=== PATIENT | male | born 1940 ===

== ENCOUNTER 2023-12-28 09:35 | Inpatient (IN) | payer MEDICARE, SELFPAY ==
[2023-12-16 08:37] VITALS: BMI 26.0
[2023-12-16 08:59] LABS: Hematocrit 28.4 % (39.0-52.0); Hemoglobin 8.9 g/dL (13.0-18.0); Mean Corp Hgb Conc. 31.3 g/dL (33.0-37.0); Mean Corpuscular Hgb 19.8 pg (27.0-31.0); Mean Corpuscular Volume 63.3 fL (80.0-94.0); Platelet Count 149 10^3/uL (130-400); Red Blood Cell Count 4.49 10^6/uL (4.70-6.10); Red Cell Dist. Width 20.9 % (11.5-14.5); White Blood Cell Count 4.5 10^3/uL (4.8-10.8)
[2023-12-16 09:11] LABS: INR 1.17; PT 14.9 Sec (11.4-14.6)
[2023-12-16 09:33] LABS: ALT (SGPT) 15 U/L (0-50); AST (SGOT) 32 U/L (17-59); Albumin 4.1 g/dl (3.5-5.0); Alkaline Phosphatase 46 U/L (38-126); Blood Urea Nitrogen 24 mg/dl (9-20); Calcium 9.6 mg/dl (8.4-10.2); Carbon Dioxide 29 mmol/L (22-30); Chloride 104 mmol/L (98-107); Estimated Creatinine Clearance 57 ml/min; Glucose 106 mg/dl (70-99); Potassium 4.5 mmol/L (3.5-5.1); Sodium 143 mmol/L (135-145); Total Bilirubin 0.9 mg/dl (0.2-1.3); eGFR > 60.00
--- NOTE | 2023-12-21 11:58 | PTCARENOTE ---
Hbg 8.9, Shaylee at Dr. Orellana's office notified.
[2023-12-28] VITALS (14 sets, daily range): BP systolic 135–167; BP diastolic 73–96; BMI 26.0
[2023-12-28] MEDS: NEURONTIN 300 MG PO (08:49)
[2023-12-28] MEDS: TYLENOL 1000 MG PO (08:49)
[2023-12-28] MEDS: HEPARIN 5000 UNITS SC ×2 (08:49→19:32)
[2023-12-28] MEDS: TRANSDERM-SCOP 1 PATCH TRANSDERM (09:29)
[2023-12-28 11:22] LABS: B.E. - POC 1.5 mmol/L; Glucose - POC 120 mg/dl (70-99); HCO3 - POC 27 mmol/L (21-28); Hematocrit - POC 28 % PCV (42-52); Hemodilution- POC Yes; Hemoglobin Calculated - POC 9.6; Ionized Calcium - POC 1.25 mmol/L (1.15-1.33); Lactate - POC 0.84 mmol/L (0.36-0.75); O2 Saturation %Calculated-POC 91.7 % (94-98); PCO2 - POC 44 mmHg (35-48); PO2 - POC 64 mmHg (83-108); Potassium - POC 4.4 mmol/L (3.5-5.1); Sodium - POC 139 mmol/L (136-145); pH - POC 7.39 (7.35-7.45)
--- NOTE | 2023-12-28 12:58 | SUR.PHASEI ---
patient [place] - slow to awaken - remembers that he had surgery, denies pain or nausea, cooperative, c/o only of being tired. vss, HNV - ortega attempted in OR - unsuccessful. Abdomen soft. Taking few ice chips PO
[2023-12-28] MEDS: TYLENOL 650 MG PO ×3 (13:09→19:32)
[2023-12-28] MEDS: D5/0.9% SODIUM CHLORIDE 1000 IV (13:38)
--- NOTE | 2023-12-28 13:43 | PTCARENOTE ---
Pt arrived to 2S in bed. Full assessment completed. Pt drowsy but easily arouses to verbal stimuli. Abdominal DSGs with a scant amount of drainage noted. Scab noted above right eye and bruising noted below left eye. IVF infusing per order. Nasal
cannula maintained. Bed locked and in the lowest position, safety maintained. Bed alarm engaged, call saravia in reach, daughter at bedside.
[2023-12-28] MEDS: NEURONTIN 100 MG PO ×2 (16:11→20:47)
[2023-12-28] MEDS: ZYLOPRIM 100 MG PO (17:02)
[2023-12-28] MEDS: ATIVAN 0.5 MG PO (17:02)
[2023-12-28] MEDS: ZOLOFT 100 MG PO (17:02)
--- NOTE | 2023-12-28 18:22 | OR.RPT ---
Operative Report
Operative Report
Date of Operation: December 28, 2023
Preoperative Diagnosis: �Abdominal Mass - [id number]
Postoperative Diagnosis: Same
Surgeon: Mayito Orellana M.D.
Operation: �Attempted laparoscopy, mini-laparotomy, resection of left abdominal tumor (2cm) - [id number]
Anesthesia: General Anesthesia
Estimated Blood Loss: Minimal
Drains: None
Specimen: Abdominal tumor
Findings: Multiple mesenteric and abdominal tumor
Complications: None
Procedure:
The patient was taken to the operating room and placed in the usual supine position. After adequate general endotracheal anesthesia was established, the patient's abdomen was prepped and draped in the usual fashion.
At this time, an infra-umbilical incision was made with a #10 blade, and a Veress needle was placed into the peritoneal cavity without success. Therefore, a decision was made to switch to the Mora trocar placement technique. The subcutaneous
tissue and fascia were divided, and the abdomen was entered. An 11 mm trocar was placed, and the camera was placed after insufflating the abdomen to 15 mmHg. At this time, another 5 mm trocar was placed in the right lower quadrant of the abdomen
under direct vision. A camera and grasper were placed through trocars, and the abdomen was explored.
A bulge with induration was noted in the mesentery of the small bowel on the left side of the abdomen. The mesenteric fat was dissected with a Ligasure energy device. There was no obvious mass within this induration. A decision was made to extend
the umbilical incision superiorly to about 2 inches to palpate the area. The abdomen was entered, and the area was palpated, confirming an indurated mass. Further dissection was performed. At this time, there was some bleeding, and this was packed,
and the small bowel was retracted to the right side of the abdomen. When the retraction was performed, a large mass with associated surrounding masses in the retroperitoneal area was noted, which were discrete and indurated and appeared to be
malignant processes. Therefore, one of the masses was resected and sent to pathology for a permanent section. Hemostasis was obtained using Tisseel and Surgicel.
After obtaining adequate hemostasis, the abdomen was closed. The fascia was approximated with #1 Vicryl in a running fashion. The subcutaneous tissue was approximated with #3 Vicryl in a running fashion. The skin was approximated with #4 Monocryl in
a running subcuticular fashion. Steri-strips and cerebral joints were applied. The patient was transferred to the recovery room. The final needle, sponge, and instrument counts were correct.
[2023-12-28] MEDS: FLOMAX 0.4 MG PO (19:32)
[2023-12-28] MEDS: COLACE 100 MG PO (19:32)
[2023-12-28] MEDS: MURO 128/ADSORBONAC 5% EYE DROPS 1 DROP BOTH EYES (19:33)
[2023-12-29] MEDS: TYLENOL 650 MG PO ×3 (00:13→19:43)
[2023-12-29] MEDS: D5/0.9% SODIUM CHLORIDE 1000 IV (01:45)
[2023-12-29 03:53] VITALS: BP 173/94
[2023-12-29] MEDS: TYLENOL PO ×3 (04:14→17:24)
[2023-12-29] MEDS: COZAAR 25 MG PO (07:51)
[2023-12-29] MEDS: NEURONTIN 100 MG PO ×3 (07:51→21:25)
[2023-12-29] MEDS: FLOMAX 0.4 MG PO ×2 (07:51→19:43)
[2023-12-29] MEDS: COLACE 100 MG PO ×2 (07:51→19:42)
[2023-12-29] MEDS: MURO 128/ADSORBONAC 5% EYE DROPS 1 DROP BOTH EYES ×2 (07:52→19:43)
[2023-12-29] MEDS: HEPARIN 5000 UNITS SC ×2 (07:52→20:23)
[2023-12-29 08:00] VITALS: BP 147/96
--- NOTE | 2023-12-29 10:38 | W.PN.GENERIC ---
Assessment / Plan
-
S/p exision of the abdominal tumor POD #1
Stable
Now with ileus.
Will continue current diet
Needs to ambulate
DC IVF (excellent UO)
Encourage pulm toilet
Will as PT/OT to see patient
Await final pathology
Physician Progress Note
Subjective
No complaints.
Objective
Vital Signs
Temp Pulse Resp BP Pulse Ox
97.7 F 67 18 147/96 96
12/29/23 08:00 12/29/23 08:00 12/29/23 08:00 12/29/23 08:00 12/29/23 08:00
Lab Results
12/16/23 08:28
12/16/23 08:28
Abdomen - distended and tympanitic. Dsg - CDI
--- NOTE | 2023-12-29 12:02 | CM ---
Addendum entered by Leyda Clark 12/29/23 15:36:
Met with pt and his daughter at bedside
Discussed PT/OT recs - HH
Pt declined HH. Pt encouraged to reconsider
CM will offer HH prior to discharge
Plan - anticipate home no needs vs with HH
Original Note:
Met with pt at bedside
Pt reports he lives alone in apartment; no steps to enter, elevator access. Sister lives in same apartment complex
Independent at baseline, no device with ambulation, drives, does own cleaning, cooking,shopping
DME - none
SNF/HH - denies past hx
Has ride at discharge
PCP - Cam Wan
Pharm - [facility]
PT/OT eval pending
Pt reports daughter will assist as needed when discharged from hospital
Plan - TBD - anticipate home no needs vs with HH
[2023-12-29 12:15] VITALS: BP 147/86; BP 159/81; PULSE 60; O2SAT 98
[2023-12-29 13:13] VITALS: BP 147/86; BP 159/81; PULSE 60; O2SAT 98
[2023-12-29 15:00] VITALS: BP 138/75
[2023-12-29] MEDS: ATIVAN 0.5 MG PO (17:24)
[2023-12-29] MEDS: ZYLOPRIM 100 MG PO (17:24)
[2023-12-29] MEDS: ZOLOFT 100 MG PO (17:25)
[2023-12-29 23:35] VITALS: BP 154/95
[2023-12-30] MEDS: TYLENOL PO ×2 (05:06→12:11)
--- NOTE | 2023-12-30 05:07 | PTCARENOTE ---
assumed care at 0300. pt reported that he is frequently using the bathroom voiding small amounts. pt very distended. pt bladder scan 800ml. 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 pt straight cath for 900ml. pt tolerated procedure. pt states he feels better but abd still very
distended - pt reports no flatulence this evening but feels constipated.
[2023-12-30 07:16] VITALS: BP 176/96
[2023-12-30] MEDS: FLOMAX 0.4 MG PO (08:44)
[2023-12-30] MEDS: TYLENOL 650 MG PO ×2 (08:44)
[2023-12-30] MEDS: COLACE 100 MG PO (08:44)
[2023-12-30] MEDS: COZAAR 25 MG PO (08:44)
[2023-12-30] MEDS: HEPARIN 5000 UNITS SC (08:44)
[2023-12-30] MEDS: MURO 128/ADSORBONAC 5% EYE DROPS 1 DROP BOTH EYES (08:45)
[2023-12-30] MEDS: NEURONTIN PO (08:45)
--- NOTE | 2023-12-30 13:21 | CM ---
Pt planned for discharge today
Spoke with pt - has ride home - daughter
Discussed HH - declined
Plan - anticipate home no needs
[2023-12-30 14:00] VITALS: BP 157/86
--- NOTE | 2023-12-30 14:15 | W.DS.TRANS ---
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
-
Discharge Instructions:
Sleep Apnea Risk Intermediate
Discharge Diagnosis/Procedures ABDOMINAL TUMOR
Diet As tolerated
Activity As tolerated
Additional Activity AVOID HEAVY LIFTING
Driving Restrictions Not until seen by your Dr
Bathing Restrictions OK to Shower
Instructions:
Stand-Alone Forms:
Changes to Home Medications: No
Discharge Medications:
DC Medications w/original date entered in [facility]
allopurinol 100 mg tablet 100 mg PO QPM 12/27/23
aspirin 81 mg capsule 81 mg PO DAILY 12/27/23
lorazepam 0.5 mg tablet 0.5 mg PO QPM 12/27/23
losartan 50 mg tablet 25 mg PO DAILY 12/27/23
psyllium husk 0.4 gram capsule (Metamucil) 0.8 g PO BID 12/27/23
sertraline 100 mg tablet 100 mg PO QPM 12/27/23
sodium chloride 5 % eye drops (Kianna 128) 1 drp BOTH EYES BID 12/27/23
tamsulosin 0.4 mg capsule 0.4 mg PO BID 12/27/23
Home Medication Changes
Pending Results: No
== END 2023-12-30 15:02 | disposition home or self-care (01) | DRG 824 ==
LOC: 2 SOUTH 09:35
PROVIDERS: ADMITTING PHYSICIAN Surgery; FAMILY PHYSICIAN Family Medicine
PROC: 0WJG4ZZ Inspection of Peritoneal Cavity, Percutaneous Endoscopic Approach (ICD-10-PCS; 2023-12-28)
PROC: 0WBH0ZX Excision of Retroperitoneum, Open Approach, Diagnostic (ICD-10-PCS; 2023-12-28)
DX: C83.33 Diffuse large B-cell lymphoma, intra-abdominal lymph nodes (principal); I47.10 Supraventricular tachycardia, unspecified; K56.7 Ileus, unspecified; K91.89 Other postprocedural complications and disorders of digestive system; I10 Essential (primary) hypertension; Z60.2 Problems related to living alone; Z88.5 Allergy status to narcotic agent; Z85.820 Personal history of malignant melanoma of skin; Z79.82 Long term (current) use of aspirin
CPT/HCPCS: 88305; 80053; 85027; 85610; 85730; 86850; 86900; 86901; 87070; 87075; 87205; 88341; 88342; 88365; 97116; 97129; 97162; 97166; 97535; C1776; C9250